=== PATIENT | female | born 1945 | race Caucasian/White ===

== ENCOUNTER → 2022-01-18 18:16 | Outpatient (BNVA) | payer MEDICARE, SELFPAY | PROVIDERS: Visit Provider Registered Nurse Neonatal Intensive Care | DX: R50.9 Fever, unspecified (principal); Z20.822 Contact with and (suspected) exposure to COVID-19 | CPT/HCPCS: 87426 ==

== ENCOUNTER → 2023-04-02 07:59 | Outpatient (BNVA) | payer MEDICARE, SELFPAY | PROVIDERS: PCP Physician Assistant; Referring Provider Physician Assistant; Visit Provider Nurse Practitioner Family | DX: L82.0 Inflamed seborrheic keratosis (principal); Z85.828 Personal history of other malignant neoplasm of skin; L57.0 Actinic keratosis; L82.1 Other seborrheic keratosis; D69.2 Other nonthrombocytopenic purpura | CPT/HCPCS: 17000; 17110; 99203 ==

== ENCOUNTER 2023-08-07 15:02 | Observation (INO) | payer MEDICARE, SELFPAY ==
[2023-08-07] VITALS (11 sets, daily range): BP systolic 103–147; BP diastolic 59–84; PULSE 61–88; RESP 16–18; TEMP 36.6–36.9; O2SAT 91–98; BMI 27.6
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
[2023-08-07 17:15] LABS: Basophils % 0.5 %; Eosinophils % 0.5 %; Hematocrit 40.1 % (36-47); Lymphocytes # 1.8 10^3/uL (0.8-4.8); Lymphocytes % 21.7 %; Mean Corpuscular HGB Conc 32.2 g/dL (30-55); Mean Corpuscular Hemoglobin 29.1 pg (27-33); Mean Corpuscular Volume 90.3 fl (85-98); Mean Platelet Volume 11.3 fL (7.4-10.4); Monocytes # 0.4 10^3/uL (0.2-0.9); Monocytes % 5.3 %; Neutrophils # 5.77 10^3/uL (1.8-7.7); Neutrophils % 71.6 %; Nucleated Red Blood Cells % 0 %; Platelet Count 300 10^3/cmm (157-399); Red Blood Count 4.44 10^6/uL (3.85-5.65); Red Cell Distribution Width 12.6 % (12.1-15.1); White Blood Count 8.06 10^3/uL (3.29-11.43)
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
[2023-08-07 17:36] LABS: Alanine Aminotransferase 28 U/L (0-33); Albumin Level 4.4 g/dL (3.5-5.2); Alkaline Phosphatase 81 U/L (35-105); Anion Gap 15.7 (5-19); Aspartate Amino Transferase 24 U/L (0-32); Blood Urea Nitrogen 21 mg/dL (8-23); Calcium 9.4 mg/dL (8.5-10.5); Carbon Dioxide 29 mmol/L (22-29); Chloride 103 mmol/L (98-107); Globulin 2.6 g/dL (1.3-4.6); Glucose 133 mg/dL (65-115); Osmolality Calculated 303 mOsm/kg (285-295); Potassium 3.7 mmol/L (3.5-5.1); Sodium 144 mmol/L (136-145); Total Bilirubin 0.5 mg/dL (0.15-1.2)
--- NOTE | 2023-08-07 17:56 | ECG_ITS ---
[facility] Test Date: 2023-08-07 Pat Name: Nini Knox Department: Room: Gender: Female [employer]: : 1945 Requested By: Fausto Hensley Order Number: [id number] Fauzia MD: Crystal Garces M.D. Measurements Intervals [place] Rate: 74 P: 47 PA: 194 QRS: 34 QRSD: 82 T: 74 QT: 407 QTc: 454 Interpretive Statements SINUS RHYTHM LOW QRS VOLTAGE IN PRECORDIAL LEADS [QRS DEFLECTION < 1.0 mV IN CHEST LEADS] No previous ECG available for comparison Electronically Signed On 08-07-2023 22:14:04 CDT by Crystal Garces M.D. [email or web address]
--- NOTE | 2023-08-07 18:02 | CTR_ITS ---
PROCEDURE INFORMATION: Exam: CTA Head With Contrast, Arteriography Exam date and time: 08/07/2023 6:58 PM Age: 77 years old Clinical indication: Dizziness and giddiness; Additional info: Sub acute posterior CVA TECHNIQUE: Imaging protocol: Computed tomographic angiography of the head with contrast. Exam focused on the arteries. 3D rendering (Not supervised by radiologist): MIP and/or 3D reconstructed images were created by the technologist. Radiation optimization: All CT scans at this facility use at least one of these dose optimization techniques: automated exposure control; mA and/or kV adjustment per patient size (includes targeted exams where dose is matched to clinical indication); or iterative reconstruction. Contrast material: OMNI 350; Contrast volume: 100 ml; Contrast route: INTRAVENOUS (IV); COMPARISON: CT head wo con* [id number] 08/07/2023 3:44 PM RADIATION DOSE METRICS: Total DLP (mGy-cm): 423.42 FINDINGS: ANTERIOR CIRCULATION: Right internal carotid artery: Atherosclerotic changes right internal carotid artery with mild stenosis. Right middle cerebral artery: No occlusion or significant stenosis. No aneurysm. Right anterior cerebral artery: No occlusion or significant stenosis. No aneurysm. Left internal carotid artery: Intracranial segment is patent with no significant stenosis. No aneurysm. Left middle cerebral artery: No occlusion or significant stenosis. No aneurysm. Left anterior cerebral artery: No occlusion or significant stenosis. No aneurysm. POSTERIOR CIRCULATION: Right vertebral artery: No occlusion or significant stenosis. No aneurysm. Left vertebral artery: No occlusion or significant stenosis. No aneurysm. Basilar artery: No occlusion or significant stenosis. No aneurysm. Right posterior cerebral artery: No occlusion or significant stenosis. No aneurysm. Left posterior cerebral artery: No occlusion or significant stenosis. No aneurysm. Left posterior communicating artery: There is a 2 mm inferiorly projecting infundibulum or small aneurysm at the left posterior communicating artery origin on series 4, image 227. Brain: No definite mass, mass effect, or midline shift. Cerebral ventricles: No ventriculomegaly. Bones/joints: No acute fracture. Soft tissues: Unremarkable. PROCEDURE INFORMATION: Exam: CTA Neck With Contrast Exam date and time: 08/07/2023 6:58 PM Age: 77 years old Clinical indication: Dizziness and giddiness; Additional info: Sub acute posterior CVA TECHNIQUE: Imaging protocol: Computed tomographic angiography of the neck with contrast. Exam focused on the cervical segments of the vasculature. 3D rendering (Not supervised by radiologist): MIP and/or 3D reconstructed images were created by the technologist. Radiation optimization: All CT scans at this facility use at least one of these dose optimization techniques: automated exposure control; mA and/or kV adjustment per patient size (includes targeted exams where dose is matched to clinical indication); or iterative reconstruction. Contrast material: OMNI 350; Contrast volume: 100 ml; Contrast route: INTRAVENOUS (IV); COMPARISON: CT head wo con* [id number] 08/07/2023 3:44 PM RADIATION DOSE METRICS: Total DLP (mGy-cm): 423.42 FINDINGS: Right common carotid artery: No stenosis. No dissection or occlusion. Right internal carotid artery: No stenosis of the extracranial segment. No dissection or occlusion. Right external carotid artery: No visible occlusion. Left common carotid artery: No stenosis. No dissection or occlusion. Left internal carotid artery: No stenosis of the extracranial segment. No dissection or occlusion. Left external carotid artery: No visible occlusion. Right vertebral artery: No stenosis. No dissection or occlusion. Left vertebral artery: No stenosis. No dissection or occlusion. Aorta: Atherosclerosis thoracic aorta. Soft tissues: No significant soft tissue swelling. Bones/joints: No acute fracture. Multilevel degenerative change. C5-C6 posterior longitudinal ligamentous ossification with a least moderate stenosis of the spinal canal. CT/CT angio headneck* [id number] IMPRESSION: 1. No acute large vessel occlusion identified. 2. 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 IMPRESSION: No occlusion or significant stenosis. REFERENCES: NASCET CRITERIA. The degree of stenosis in the cervical segment of the internal carotid artery is based on NASCET criteria. Normal is no stenosis. Mild is less than 50% stenosis. Moderate is 50-69% stenosis. Severe is 70% to 99% stenosis. Total occlusion is no detectable patent lumen.
[2023-08-07] MEDS: iohexol 350 mg/mL 500 mL Btl (per mL) IV (18:59)
--- NOTE | 2023-08-07 19:02 | PC.NURSE ---
Assumed care from ISABELLA Echols at this time.
[2023-08-07 19:11] LABS: Add Urine Microscopic? YES; Bilirubin Urine Neg (Negative); Blood Urine 2+ (Negative); Glucose Urine UA Norm (Normal); Ketones Urine 1+ (Negative); Leukocyte Esterase Urine Negative (Negative); Nitrate Urine Negative (Negative); Protein Urine Neg (Negative); Urine Appearance Cloudy (CLEAR); Urine Color Yellow (Yellow); Urobilinogen Urine Norm (Negative); pH Urine 6 (5-7)
[2023-08-07 19:28] LABS: Add Urine Culture? Yes; Amorphous Sediment Urine TRACE /hpf; Bacteria Urine 3+ /hpf; Mucus Urine 1+ /hpf; RBC Urine 0-4 /hpf (0-2); Squamous Epithelial Cell Urine 0-4 /hpf (0-5)
[2023-08-07 20:26] LABS: Glucose Point of Care 113 mg/dL (70-110)
[2023-08-07 21:09] LABS: Thyroid Stimulating Hormone 0.17 uIU/mL (0.27-4.20)
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
--- NOTE | 2023-08-07 21:14 | USCV_ITS ---
Nini Knox Age: 77 Gender: F : 1945 Exam Date: 08/07/2023 22:21 Ordering Phys: Julius Sandhu MD Technologist: DEE [place] [facility] [place]: chronic dizziness x 1 week with nausea, vomiting, and multiple falls. No history of cardiac intervention per patient. BP: 143 / 88 HR: 54 Rhythm: Sinus Technical Quality: Adequate MEASUREMENTS (Male / Female) Normal Values 2D ECHO LV Diastolic Diameter PLAX 3.9 cm 4.2 - 5.9 / 3.9 - 5.3 cm IVS Diastolic Thickness 1.5 cm 0.6 - 1.0 / 0.6 - 0.9 cm IVS Systolic Thickness 1.7 cm LVPW Diastolic Thickness 1.3 cm 0.6 - 1.0 / 0.6 - 0.9 cm LVPW Systolic Thickness 1.7 cm LVOT Diameter 1.7 cm LV Ejection Fraction 2D Teich 67.6 % LV Ejection Fraction MOD 2C 54.2 % LV Ejection Fraction 2C AL 55.7 % LA Diameter 2.3 cm Aorta at Sinotubular Diameter 3.1 cm IVC Diameter 1.7 cm M-MODE LA Ao Ratio MM 1.0 AV Cusp Separation MM 1.5 cm DOPPLER AV Peak Velocity 109.0 cm/s LVOT Peak Velocity 80.0 cm/s AV Area Cont Eq vti 1.7 cm squared AV Area Cont Eq pk 1.6 cm squared MV Peak Velocity 102.0 cm/s MV Area PHT 3.2 cm squared Mitral E to A Ratio 0.8 TV Peak E Velocity 33.0 cm/s PV Peak Velocity 96.0 cm/s FINDINGS Left Ventricle Normal left ventricular size and systolic function, EF 55%.no regional wall motion abnormalities. Mild left ventricular hypertrophy. Grade I/IV diastolic dysfunction (abnormal relaxation filling pattern), normal to mildly elevated filling pressures. Right Ventricle The right ventricle is normal in size and function. Right Atrium The right atrium is normal in size. Left Atrium Thickening of the interatrial septum, suggesting lipomatous dystrophy Mitral Valve No gross abnormalities noted Aortic Valve No gross abnormalities noted . Tricuspid Valve No gross abnormalities noted Pulmonic Valve Trace pulmonary valve regurgitation. Pericardium Normal pericardium without effusion. Aorta Normal ascending aorta dimension. IVC The inferior vena cava appears normal. CONCLUSIONS Normal left ventricular size and systolic function, EF 55%.no regional wall motion abnormalities. Mild left ventricular hypertrophy. Grade I/IV diastolic dysfunction (abnormal relaxation filling pattern), normal to mildly elevated filling pressures. Thickening of the interatrial septum, suggesting lipomatous dystrophy. Trace pulmonary valve regurgitation. There is no pericardial effusion. There are no intracardiac masses. No similar previous studies are available for comparison Dr Crystal Garces MD FACC (Electronically Signed) Final Date: 08 August 2023 08:55 S
--- NOTE | 2023-08-07 21:25 | PC.NURSE ---
Report was called to DASH Stevens. All questions and concerns were addressed at time of report.
[2023-08-07 22:18] LABS: Estmated Average Glucose 131; Hemoglobin A1C 6.2 % (4.0-6.0)
[2023-08-07] MEDS: enoxaparin 40 mg/0.4 mL Syringe SUBCUT (23:04)
[2023-08-07] MEDS: cefTRIAXone 1,000 MG in sodium chloride 0.9% (plus) 50 ML 100 MG IV (23:04)
[2023-08-07] MEDS: ondansetron 2 mg/ML SDV 2 mL 4 MG IVP (23:06)
[2023-08-07 23:42] LABS: Prolactin 5.17 ng/mL (4.8-23.3)
[2023-08-07 23:46] LABS: Vitamin B12 218 pg/mL (232-1245)
[2023-08-08] VITALS (7 sets, daily range): BP systolic 114–135; BP diastolic 63–72; PULSE 76–83; RESP 14–17; TEMP 36.6–36.8; O2SAT 91–94; BMI 27.1
[2023-08-08 05:57] LABS: Anion Gap 14.3 (5-19); Blood Urea Nitrogen 21 mg/dL (8-23); Calcium 9.3 mg/dL (8.5-10.5); Carbon Dioxide 28 mmol/L (22-29); Chloride 104 mmol/L (98-107); Creatinine Clr Calc Pharmacy 47.7786; Glucose 118 mg/dL (65-115); Magnesium 1.8 mg/dL (1.7-2.3); Osmolality Calculated 300 mOsm/kg (285-295); Phosphorus 3.7 mg/dL (2.5-4.5); Potassium 3.3 mmol/L (3.5-5.1); Sodium 143 mmol/L (136-145)
--- NOTE | 2023-08-08 08:23 | PC.SOCIAL ---
IMM IMM Not updated @ this time as patient is currently in observation status.
--- NOTE | 2023-08-08 09:07 | PC.CHAP ---
Pastoral Care Encounter/Spiritual Assessment Type of Contact [] Declined batch or continuous still operator visit [] Patient/Family/Request visit [] Outpatient visit [] Follow-up visit [] Physician referral [] Code/Alert [x] Routine visit [] Staff referral [] Actively dying [] Patient sleeping [] Family support [] [] Out of room [] Palliative care [] [] Receiving care in room [] Pre-surgical visit [] Trauma [] Long length of stay [] ICU visit [] Other: Relational/Emotional Strength [x] Patient feels connected with others/family/visitors/staff [] Distress [] Loneliness/isolation [] Abandonment Spirituality of Patient [x] Person of Lillian [] Attends Uatsdin of their Lillian [x] Believes in Prayer [] Reads Bible or Mu-Ism materials [] There are Spiritual issues to be addressed Bat Carrier Interventions [x] Prayer [x] Active listening [] Non-anxious presence [x] Spiritual/emotional support [] Crisis/trauma care [] Spiritual counseling [] Bereavement support [] Provided bereavement packet [] Provided Bible/devotional materials [] Provided toy/stuffed animal, coloring book to patient or family member [] Provided Communion [] Anointing/[place] [] Salvation [x] Completed spiritual assessment [] Other: Impact on Illness or Injury [] Angry [] Fearful [] Anxious [] Often cries [] Exhaustion [] Unable to work [] Unable to attend shinto [] Unable to walk/stand [] Unable to read [] Unable to drive [] Unable to eat/drink [] Unable to sleep [] Unable to be with family [] Patient intubated [] Other: Summary Time spent with patient 5 min
[2023-08-08] MEDS: lisinopril 10 mg Tablet PO (09:22)
[2023-08-08] MEDS: atorvastatin 40 mg Tablet 80 MG PO (09:22)
[2023-08-08] MEDS: sennosides-docusate Tablet 1 TAB PO (09:22)
[2023-08-08] MEDS: aspirin 81 mg EC Tablet PO (09:22)
[2023-08-08] MEDS: meclizine 25 mg tablet PO ×2 (14:22→21:02)
[2023-08-08] MEDS: ondansetron 2 mg/ML SDV 2 mL 4 MG IVP (14:22)
--- NOTE | 2023-08-08 17:32 | PM.PN ---
Subjective Subjective: Patient underwent Sheyla's maneuver earlier today. No reproducible nystagmus. States she has some partial relief but nothing significant. Continues to have dizziness and nausea. Medications: Reviewed: Yes Vitals/I&O/Wt Last Vital Signs Temp 97.8 F 08/08/23 16:00 Pulse 78 08/08/23 16:00 Resp 15 08/08/23 16:00 BP 114/63 08/08/23 16:00 Pulse Ox 92 08/08/23 16:00 O2 Del Method Room Air 08/08/23 16:00 08/08/23 08/08/23 08/08/23 06:59 14:59 22:59 Intake Total 290 / 290 480 / 480 Output Total 250 / 250 200 / 200 Balance 40 / 40 280 / 280 Weight last 48 hrs Weight 67.132 kg Weight 68.447 kg Weight 67.132 kg Physical Exam Narrative: General: No acute distress, AO x3 HEENT: PERRLA, pupils bilaterally equal and reactive, pallors not present Chest: Normal vesicular breath sounds, no added sounds, equal good air entry bilaterally CVS: S1-S2 regular, no murmurs, no tachycardia, no gallops, no rubs Abdomen: Soft, nontender, no organomegaly, bowel sounds present Neuro: No focal deficits, no facial deformity, AO x3, power 5/5 in all limbs Data 08/07/23 16:37 08/08/23 05:03 A&P Assessment and plan (1) BPPV (benign paroxysmal positional vertigo): (2) Dizziness: Plan Dizziness BPPV My concern for CVA related changes are low I do believe she has vertigo related dizziness causing nausea and vomiting CTA head and neck showing aneurysm of 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 Plan for MRI of the head today to evaluate for posterior circulation stroke given persisting symptoms. This is likely to happen later this evening, uncertain if patient will be able to discharge afterwards since it will be late in the day until test is performed and results are obtained.. Will await MRI. Attestations Medical Necessity Statement*: Pending MRI Coding Level of Care Code Acute Code for Chg Fwd Diagnoses BPPV (benign paroxysmal positional vertigo) H81.10 Dizziness R42
[2023-08-08] MEDS: enoxaparin 40 mg/0.4 mL Syringe SUBCUT (21:02)
[2023-08-08] MEDS: cefTRIAXone 1,000 MG in sodium chloride 0.9% (plus) 50 ML 100 MG IV (21:02)
[2023-08-09] VITALS: BP 105/60; PULSE 78; RESP 17; TEMP 36.8; O2SAT 93
[2023-08-09 04:00] VITALS: BP 117/57; PULSE 84; RESP 18; TEMP 36.7; O2SAT 93
[2023-08-09 07:42] VITALS: PULSE 77; RESP 18; O2SAT 92
[2023-08-09 08:00] VITALS: BP 131/65; PULSE 86; RESP 17; TEMP 36.7; O2SAT 94
[2023-08-09] MEDS: meclizine 25 mg tablet PO (09:10)
[2023-08-09] MEDS: sennosides-docusate Tablet 1 TAB PO (09:10)
[2023-08-09] MEDS: aspirin 81 mg EC Tablet PO (09:10)
[2023-08-09] MEDS: atorvastatin 40 mg Tablet 80 MG PO (09:10)
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
[2023-08-09 12:00] VITALS: BP 136/69; PULSE 83; RESP 17; TEMP 37.3; O2SAT 91
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
--- NOTE | 2023-08-09 17:47 | PC.NURSE ---
Discussed discharge with patient and family. Discussed new medications, follow up appointments and answered all questions. Patient verbalized understanding.
[2023-08-09 17:48] VITALS: BP 136/69; PULSE 83; RESP 17; TEMP 37.3; O2SAT 91
== END 2023-08-09 13:45 | disposition home or self-care (01) ==
LOC: ER 18:22 → MEDSURG 08-08 06:50
PROVIDERS: Nurse Practitioner Family; Admitting Provider Internal Medicine; Emergency Provider Internal Medicine; PCP Physician Assistant; Visit Provider Student in an Organized Health Care Education/Training Program
DX: H81.10 Benign paroxysmal vertigo, unspecified ear (principal); E11.9 Type 2 diabetes mellitus without complications; I10 Essential (primary) hypertension; E78.5 Hyperlipidemia, unspecified; E03.9 Hypothyroidism, unspecified; Z85.3 Personal history of malignant neoplasm of breast
CPT/HCPCS: 36415; 36416; 70450; 70496; 70498; 70551; 80048; 80053; 81001; 82607; 82962; 83036; 83735; 84100; 84146; 84443; 85025; 86140; 87077; 87086; 87186; 93005; 93306; 96372; 97110; 97116; 97162; 97166; 97530; 99285; G0378; J0696; J1650; J2405; J8597; Q9967

== ENCOUNTER → 2023-11-07 12:50 | Outpatient (BNVA) | payer MEDICARE, SELFPAY | PROVIDERS: PCP Physician Assistant; Visit Provider Specialist | DX: Z09 Encounter for follow-up examination after completed treatment for conditions other than malignant neoplasm; H81.10 Benign paroxysmal vertigo, unspecified ear; I67.1 Cerebral aneurysm, nonruptured; R41.3 Other amnesia | CPT/HCPCS: 96116; 99204; 99205 ==

== ENCOUNTER 2023-11-10 07:16 | Oncology outpatient (recurring) (ONCR) | payer MEDICARE, SELFPAY ==
[2023-11-10 09:03] LABS: Basophils # 0.1 10^3/uL (0.0-0.1); Basophils % 0.8 %; Eosinophils # 0.2 10^3/uL (0.0-0.8); Eosinophils % 2.6 %; Hematocrit 37.8 % (36-47); Lymphocytes # 2.3 10^3/uL (0.8-4.8); Mean Corpuscular HGB Conc 32.5 g/dL (30-55); Mean Corpuscular Hemoglobin 28.5 pg (27-33); Mean Corpuscular Volume 87.7 fl (85-98); Mean Platelet Volume 10.3 fL (7.4-10.4); Monocytes # 0.5 10^3/uL (0.2-0.9); Neutrophils # 4.56 10^3/uL (1.8-7.7); Neutrophils % 59.3 %; Nucleated Red Blood Cells % 0 %; Platelet Count 303 10^3/cmm (157-399); Red Blood Count 4.31 10^6/uL (3.85-5.65); Red Cell Distribution Width 13.2 % (12.1-15.1); White Blood Count 7.69 10^3/uL (3.29-11.43)
[2023-11-10 09:45] LABS: 25 Hydroxy Vitamin D 90 ng/mL (30-100); Alanine Aminotransferase 17 U/L (0-33); Albumin Level 4.6 g/dL (3.5-5.2); Alkaline Phosphatase 79 U/L (35-105); Anion Gap 16.7 (5-19); Aspartate Amino Transferase 17 U/L (0-32); Blood Urea Nitrogen 24 mg/dL (8-23); Calcium 9.9 mg/dL (8.5-10.5); Carbon Dioxide 26 mmol/L (22-29); Chloride 103 mmol/L (98-107); Creatinine Clr Calc Pharmacy 34.9508; Globulin 2.9 g/dL (1.3-4.6); Glucose 133 mg/dL (65-115); Osmolality Calculated 300 mOsm/kg (285-295); Potassium 3.7 mmol/L (3.5-5.1); Sodium 142 mmol/L (136-145); Thyroid Stimulating Hormone 0.23 uIU/mL (0.27-4.20); Total Bilirubin 0.4 mg/dL (0.15-1.2); Total Protein 7.5 g/dL (6.6-8.7); Vitamin B12 223 pg/mL (232-1245)
[2023-11-10 10:18] LABS: Free T4 Free Thyroxine 1.98 ng/dL (0.82-1.77)
[2023-11-14 16:19] LABS: Methylmalonic Acid 480 nmol/L (69-390)
== END 2023-11-16 23:59 | disposition home or self-care (01) ==
PROVIDERS: PCP Physician Assistant; Visit Provider Internal Medicine Medical Oncology
DX: C50.912 Malignant neoplasm of unspecified site of left female breast (principal); M85.80 Other specified disorders of bone density and structure, unspecified site; G31.84 Mild cognitive impairment of uncertain or unknown etiology; E03.9 Hypothyroidism, unspecified
CPT/HCPCS: 36415; 80053; 82306; 82607; 83921; 84439; 84443; 85025; 99205

== ENCOUNTER 2023-11-19 14:40 | Outpatient (CLI) | payer MEDICARE, SELFPAY ==
--- NOTE | 2023-11-19 15:30 | XR_ITS ---
WS: [id number] SCREENING DEXA SCAN [facility] CLINICAL INFORMATION: breast cancer, osteopenia COMPARISON: None. FINDINGS: The L1-L4 bone mineral density measures 1.282 g/cm2. This corresponds to a T score score of 0.8 and Z score of 2.6. Left femoral neck bone mineral density measures 0.861 g/cm2. This corresponds to a T score of -1.2 an d Z score of 0.6. Right femoral neck bone mineral density measures 0.820 g/cm2. This corresponds to a T score -1.5of an d Z score of 0.3. Mean femoral neck bone mineral density measures 0.840 g/cm2. This corresponds to a T score of -1.3 an d Z score of 0.5. XR/XR DEXA axial skeleton* [id number] IMPRESSION: Normal bone mineralization lumbar spine. Osteopenia femoral necks. Patient's FRAX calculated 10 year probability for major osteoporotic fracture i s 19.8% and osteoporotic hip fracture is 7.0%.
== END 2023-11-19 14:41 | disposition home or self-care (01) ==
LOC: RAD 14:41
PROVIDERS: PCP Physician Assistant; Visit Provider Internal Medicine Medical Oncology
DX: Z79.811 Long term (current) use of aromatase inhibitors (principal); C50.919 Malignant neoplasm of unspecified site of unspecified female breast; M85.80 Other specified disorders of bone density and structure, unspecified site; M85.862 Other specified disorders of bone density and structure, left lower leg; M85.861 Other specified disorders of bone density and structure, right lower leg
CPT/HCPCS: 77080

== ENCOUNTER 2023-11-24 14:51 | Outpatient (CLI) | payer MEDICARE, SELFPAY ==
[2023-11-24] MEDS: iohexol 350 mg/mL 500 mL Btl (per mL) IV (15:27)
--- NOTE | 2023-11-24 15:30 | CT_ITS ---
WS: [email or web address] CTA HEAD TECHNIQUE: Contrast enhanced CTA of the head with coronal and sagittal reformatted images and maximum intensity projection (MIP) images. NASCET criteria utilized. CLINICAL INFORMATION: I67.1 - Cerebral aneurysm, nonruptured COMPARISON: CTA 08/07/2023 DLP: 1614.[address] scans at [facility] use at least one of these dose optimization techniques: automated e xposure control; mA and/or kV adjustment per patient size (includes targeted exams where dose is matc hed to clinical indication); or iterative reconstruction. FINDINGS: No evidence of intracranial hemorrhage or mass effect. Moderate small vessel changes. Mild parenchymal volume loss. Paranasal sinuses are well aerated. Mastoid air cells are well aerated. Vasc ular calcification. INTRACRANIAL CTA: Previously described tiny inferiorly projecting infundibulum or aneurysm at the LEFT posterior commun icating artery origin is unchanged. Distal vertebral arteries are patent. Basilar artery is patent. Normal vascularity to the SCHEDULING ASSISTANT territo ry bilaterally. Both ICAs are patent at the skull base. Cavernous carotid calcification. Patent anter ior communicating artery. Normal vascularity to the DONTAE and MCA territories bilaterally. No evidence of flow-limiting intracranial stenosis. CT/CT angio head [id number] IMPRESSION: 1. Tiny aneurysm or infundibulum at the LEFT posterior communicating artery or igin is unchanged. 2. No other suspicious findings or changes from previous
== END 2023-11-24 14:52 | disposition home or self-care (01) ==
LOC: RAD 14:53
PROVIDERS: PCP Physician Assistant; Visit Provider Specialist
DX: I67.1 Cerebral aneurysm, nonruptured (principal)
CPT/HCPCS: 70496; Q9967

== ENCOUNTER → 2024-02-13 14:16 | Outpatient (BNVA) | payer MEDICARE, SELFPAY | PROVIDERS: PCP Physician Assistant; Visit Provider Specialist | DX: Z09 Encounter for follow-up examination after completed treatment for conditions other than malignant neoplasm; H81.10 Benign paroxysmal vertigo, unspecified ear; I67.1 Cerebral aneurysm, nonruptured | CPT/HCPCS: 99214 ==

== ENCOUNTER → 2024-03-04 12:48 | Outpatient (BNVA) | payer MEDICARE, SELFPAY | PROVIDERS: PCP Physician Assistant; Visit Provider Dermatology | DX: L82.1 Other seborrheic keratosis (principal); D80.1 Nonfamilial hypogammaglobulinemia; L57.8 Other skin changes due to chronic exposure to nonionizing radiation; L81.4 Other melanin hyperpigmentation; D22.5 Melanocytic nevi of trunk; L72.0 Epidermal cyst; D22.22 Melanocytic nevi of left ear and external auricular canal; D22.39 Melanocytic nevi of other parts of face; L57.0 Actinic keratosis; L82.0 Inflamed seborrheic keratosis; Z85.828 Personal history of other malignant neoplasm of skin | CPT/HCPCS: 17000; 17110; 99213 ==

== ENCOUNTER 2024-07-26 09:41 | Oncology outpatient (recurring) (ONCR) | payer MEDICARE, SELFPAY ==
--- NOTE | 2024-07-26 10:00 | CT_ITS ---
WS: [id number] CTA HEAD TECHNIQUE: Contrast enhanced CTA of the head with coronal and sagittal reformatted images and maximum intensity projection (MIP) images. NASCET criteria utilized. CLINICAL INFORMATION: I67.1 - Cerebral aneurysm, nonruptured COMPARISON: 11/24/2023 DLP: 1603.[address] scans at [facility] use at least one of these dose optimization techniques: automated exposure control; mA and/or kV adjustment per patient size (includes targeted exams where dose is matched to clinical indication); or iterative reconstruction. FINDINGS: Moderate chronic small vessel changes. Mild parenchymal volume loss. Vascular calcification. Mucosal thickening in the paranasal sinuses LEFT maxillary sinusitis. Mastoid air cells are well aerated. Normal posterior nasopharynx. INTRACRANIAL CTA: Previously described tiny inferiorly projecting infundibulum or aneurysm at the LEFT posterior communicating artery origin is unchanged. Distal vertebral arteries are patent. Basilar artery is patent. Normal vascularity to the RN INTERNAL MEDICINE territory bilaterally. Both ICAs are patent at the skull base. Cavernous carotid calcification. Patent anterior communicating artery. Normal vascularity to the DONTAE and MCA territories bilaterally. No evidence of flow-limiting intracranial stenosis. CT/CT angio head [id number] IMPRESSION: 1. No evidence of flow-limiting intracranial stenosis. 2. Previously described tiny inferiorly projecting infundibulum or aneurysm at the LEFT posterior communicating artery origin is unchanged.
[2024-07-26 10:23] LABS: Blood Urea Nitrogen 21 mg/dL (8-23)
[2024-07-26] MEDS: iohexol 350 mg/mL 500 mL Btl (per mL) IV (10:35)
== END 2024-08-16 23:59 | disposition home or self-care (01) ==
LOC: RAD 09:42 → ONCMED 09:43 → RAD 09:47 → ONCMED 07-27 09:16
PROVIDERS: PCP Physician Assistant; Visit Provider Specialist
DX: I67.1 Cerebral aneurysm, nonruptured (principal)
CPT/HCPCS: 70496; 82565; 84520

== ENCOUNTER → 2024-08-05 15:26 | Outpatient (BNVA) | payer MEDICARE, SELFPAY | PROVIDERS: PCP Physician Assistant; Visit Provider Specialist | DX: H81.10 Benign paroxysmal vertigo, unspecified ear (principal); I67.1 Cerebral aneurysm, nonruptured | CPT/HCPCS: 99214 ==